=== PATIENT | male | born 1985 | race Caucasian/White ===

== ENCOUNTER 2025-02-02 12:51 | Emergency (ER) | payer SELFPAY ==
[2025-02-02 12:57] VITALS: BP 121/91; BMI 43.5
--- NOTE | 2025-02-02 13:04 | ED.GENMED ---
History of Present Illness
General
Chief Complaint: Allergic Reaction
Time Seen by Provider: 02/02/25 12:52
History of Present Illness
History of Present Illness:
Patient is a 39-year-old male with a history of bee sting allergy with anaphylaxis. He presents after bee sting to the right hand while walking outside today. States he started feeling short of breath and that his throat was closing. Medics gave
him 0.3 mg of epinephrine intramuscularly as well as 25 mg of Benadryl p.o. Symptoms are improving at this time.
Phy Exam
Physical Exam
Physical Exam:
General: No acute distress
Head: NCAT
ENT: There is no oropharyngeal swelling or angioedema
Neck, Normal in appearance, no swelling
Respiratory: No Respiratory distress, no wheezing
Abdomen: No distension
Ext: no edema
Neuro: NUNEZ, AOx4
Psych: Normal affect
Skin: Pale appearing, no rash
Course
Orders/Labs/Results
Orders:
Orders
02/02/25 13:04
Dexamethasone Sod Phosphate [Decadron] 10 mg IM NOW STA
Dexamethasone Sod Phosphate [Decadron] 20 mg .ROUTE .STK-MED ONE
Diphenhydramine [Benadryl] 25 mg IM NOW STA
Vital Signs
Initial and Last Documented VS:
Initial Vital Signs
Pulse Pulse Ox
107 97
02/02/25 12:56 02/02/25 12:56
Last Documented Vital Signs
Temp Pulse Resp BP Pulse Ox
98.9 F 108 17 120/90 96
02/02/25 12:57 02/02/25 14:15 02/02/25 14:15 02/02/25 14:00 02/02/25 14:15
*Pulse Oximetry
Patient hypoxic: no
*Critical Care Note
Total Time (30-74mins, 75-104mins- exclusive of procedures): Not Applicable
ED Attending Note
ED Attending Note
ED Attending Note:
Patient presents with resolving anaphylaxis to bee sting. Will continue to monitor in the emergency department. Given a dose of Decadron and Benadryl here. No indication for repeat epi dosing at this time.
Patient monitored in the ER with no worsening in condition and continued to be asymptomatic. Given rx for epipen. Return precautions given.
-
Portions of this chart may have been created with voice recognition software.� Occasional wrong word or��sound alike� substitutions may have occurred due to the inherent limitations of voice recognition software.
Discharge Plan
Departure
Patient Disposition: Home (Routine Discharge)
Date of Disposition: 02/02/25
Time of Disposition: 14:38
Patient with high blood pressure during this ER visit?: No
Discharge Problem:
Allergic reaction to bee sting
Prescriptions:
New
epinephrine [EpiPen] 0.3 mg/0.3 mL auto-injector
0.3 mg IM ONCE Qty: 1 0RF
Referrals:
NONE,* [Family Provider, Internal Medicine]
Activity Restrictions/Additional Instructions:
Follow up with your doctor as needed
Return to the ER with new or worsening symptoms
Interventions
Interventions:
*Risk Screen - Suicide Last Done: 02/02/25 13:06
*General Assessment Last Done: 02/02/25 13:05
*Neglect/Abuse Screening Last Done: 02/02/25 13:06
*ED- Fall Risk Assessment Last Done: 02/02/25 13:05
*ED COVID-19 Vaccine History Last Done: 02/02/25 13:05
*Nursing Disposition Last Done: 02/02/25 14:44
ED- Cardiac Assessment Last Done: 02/02/25 13:07
ED- Pulmonary Assessment Last Done: 02/02/25 13:07
ED-Skin Assessment Last Done: 02/02/25 13:07
Discharge Date and Time
Print Language: SWISS
[2025-02-02] MEDS: DECADRON 10 MG IM (13:06)
[2025-02-02] MEDS: BENADRYL 25 MG IM (13:09)
[2025-02-02 14:00] VITALS: BP 120/90
== END 2025-02-02 14:59 | disposition home or self-care (01) ==
LOC: EMR 12:51
PROVIDERS: EMERGENCY PHYSICIAN Emergency Medicine
DX: T63.441A Toxic effect of venom of bees, accidental (unintentional), initial encounter (principal); R06.02 Shortness of breath; X58.XXXA Exposure to other specified factors, initial encounter
CPT/HCPCS: 96372; 99284